=== PATIENT | male | born 1990 | race Caucasian/White ===

== ENCOUNTER 2021-08-23 20:08 | Emergency (ER) | payer SELFPAY ==
[~2021-08-23] VITALS: Ht 172.7 cm; Wt 81.6 kg
[2021-08-23 20:15] VITALS: BP 134/78
[2021-08-23] MEDS ORDERED: HYDROcodone/APAP 5/325 MG 1 TAB TAB PO ONE (21:50)
--- NOTE | 2021-08-23 21:50 | NUR ---
results back and noted by ERMD and for discharge.patient initially for [facility], and was released due to fracture of his wrist , and splinted.
--- NOTE | 2021-08-23 21:55 | NUR ---
medicated as per ERMDs order, tolerated well.
[2021-08-23 22:10] VITALS: BP 134/78
--- NOTE | 2021-08-23 22:10 | NUR ---
Patient discharged with out discharge instructions.
== END 2021-08-23 22:10 | disposition home or self-care (01) ==
LOC: MED 20:08
DX: S52.692A Other fracture of lower end of left ulna, initial encounter for closed fracture (principal); W19.XXXA Unspecified fall, initial encounter; Y93.89 Activity, other specified; Y92.89 Other specified places as the place of occurrence of the external cause; Y99.8 Other external cause status
CPT/HCPCS: 73110; 99283